=== PATIENT | female | born 2000 | race American Indian/Alaskan Native ===

== ENCOUNTER 2021-07-06 11:30 | Emergency (ER) | payer BC ==
[~2021-07-06] VITALS: Ht 162.6 cm; Wt 61.4 kg
[2021-07-06 11:44] VITALS: BP 104/67; PULSE 68; TEMP 97.7
== END 2021-07-06 13:26 | disposition home or self-care (01) ==
LOC: COL.ER 11:30
DX: S06.0X1A Concussion with loss of consciousness of 30 minutes or less, initial encounter (principal); W51.XXXA Accidental striking against or bumped into by another person, initial encounter; Y93.67 Activity, basketball

== ENCOUNTER 2021-11-04 16:04 | Emergency (ER) | payer BC ==
[~2021-11-04] VITALS: Ht 162.6 cm; Wt 56.8 kg
[2021-11-04 16:19] VITALS: BP 103/66; TEMP 98.5
[2021-11-04 17:48] VITALS: PULSE 85
== END 2021-11-04 17:48 | disposition home or self-care (01) ==
LOC: COL.ER 16:04
DX: S93.401A Sprain of unspecified ligament of right ankle, initial encounter (principal); W22.8XXA Striking against or struck by other objects, initial encounter; X50.1XXA Overexertion from prolonged static or awkward postures, initial encounter; Y99.0 Civilian activity done for income or pay; Y92.59 Other trade areas as the place of occurrence of the external cause
CPT/HCPCS: 31867; L4386